=== PATIENT | female | born 1985 | race African-American/Black ===

== ENCOUNTER 2017-09-14 10:08 | Emergency (ER) | payer SELFPAY ==
[~2017-09-14] VITALS: Ht 162.6 cm; Wt 106.0 kg
[~2017-09-14 10:08] MED LIST: BACT800T5 PO; CEPH500C3 PO
[2017-09-14 10:34] VITALS: TEMP 97
--- NOTE | 2017-09-14 11:49 | PD ---
HPI . 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 The chief complaint to the triage nurse was on abdominal pain. Patient states that she received a phone call from a previous sexual partner that he had been exposed to Trichomonas. She subsequently presents to us today for testing. She does state that she has a mild vaginal discharge which is not malodorous. PFSH Past Medical History Hx Anticoagulant Therapy: No Cardiovascular Problems: No Chemotherapy: No Cerebrovascular Accident: No Diabetes: No Diminished Hearing: No Musculoskeletal: Yes (CHRONIC BACK PAIN) Respiratory: Yes Immunizations Current: No Influenza Vaccination: No ?: Not LMP: 09/08/17 : 3 Para: 3 Tubal Ligation: Yes Past Surgical History Abdominal Surgery: Yes ( X3) Section: Yes (X 3) Gynecologic Surgery: Yes (bilateral tubal ligation) Hysterectomy: No Social History Alcohol Use: Yes (OCC. MONTHLY) Tobacco Use: Yes (1-1 1/2 black and mild per day) Substance Use: No Allergies-Medications (Allergen,Severity, Reaction): Coded Allergies: No Known Allergies (Verified Adverse Reaction, Unknown, 09/14/17) Reported Meds & Prescriptions Reported Meds & Active Scripts Active Review of Systems Genitourinary: Positive: Discharge Physical Exam Narrative GENERAL: Awake and alert and in no acute distress. SKIN: Warm and dry. HEAD: Normocephalic/atraumatic. EYES: Pupils are equal. Extraocular movements are intact. Delete NECK: Normal range of motion. Distally RESPIRATORY: Nonlabored respirations. ABDOMEN: Soft and nontender. : Normal female. Scant white discharge in the vaginal vault. No cervical motion tenderness. MUSCULOSKELETAL: Atraumatic. NEUROLOGICAL: Nonfocal. PSYCHIATRIC: Appropriate mood and affect. Data Data Last Documented VS Vital Signs Date Time Temp Pulse Resp B/P (MAP) Pulse Ox O2 Delivery O2 Flow Rate FiO2 09/14/17 10:34 97.0 Orders Orders Gc And Chlamydia Pcr (09/14/17 11:37) Wet Prep Profile (09/14/17 11:37) Ed Urine Pregnancytest Poc (09/14/17 11:37) Labs Laboratory Tests Test 09/14/17 11:59 Clue Cells (Wet Prep) NONE SEEN Vaginal Trichomonas (Wet Prep) NONE SEEN Vaginal Yeast (Wet Prep) NONE SEEN MDM Medical Decision Making Medical Screen Exam Complete: Yes Emergency Medical Condition: Yes Differential Diagnosis Differential diagnosis of STD exposure includes but is not limited to no disease , chlamydia, gonorrhea, Trichomonas Narrative Course This patient presents stating that she's been exposed to Trichomonas. She actually has a very remote possibility of exposure to Trichomonas. She states that her sexual partner was in July. He had had intercourse with someone with Trichomonas in April. The patient has no symptoms except for a scant, physiological-appearing discharge. Therefore, I will place treatment upon test. That is, if her wet prep is negative for Trichomonas, I will not treat. HCG and wet prep are negative. The patient will be discharged home with reassurance. Diagnosis Primary Impression: possible exposure to trichomonas Disposition: 01 DISCHARGE HOME Condition: Stable Kinga Garcia MD Sep 14, 2017 11:49
== END 2017-09-14 12:57 | disposition home or self-care (01) ==
LOC: NEPD 10:08
DX: R10.9 Unspecified abdominal pain (principal); F17.200 Nicotine dependence, unspecified, uncomplicated; Z20.2 Contact with and (suspected) exposure to infections with a predominantly sexual mode of transmission
CPT/HCPCS: 84703; 87210; 87491; 87591; 99283